=== PATIENT | male | born 1965 | race Caucasian/White ===

== ENCOUNTER → 2018-12-29 | Outpatient (CLI) | payer OTHER ==
--- NOTE | 2018-12-29 09:14 | KCIC ---
Shine radiograph of the orbits CLINICAL HISTORY: Pre-MRI evaluation. History of metal exposure to the eyes. Shine digital radiograph of the skull were obtained with the patient looking up and down. No radiopaque foreign body is seen involving either orbit. The visualized paranasal sinuses are clear. No fracture is seen. IMPRESSION: No radiopaque foreign body is seen involving either orbit. Electronically signed by: Josué Alvarez MD (12/29/2018 9:11 AM) [id number]
--- NOTE | 2018-12-29 10:30 | KCIC ---
Examination: MRI of the left ankle without contrast HISTORY: History of left ankle pain COMPARISON: None available Technique: Multiplanar, multisequence MR imaging of the left ankle were performed without contrast FINDINGS: The attachment of the Achilles tendon to the calcaneus grossly appears intact. The attachment of plantar fascia to the posterior calcaneus grossly appears intact. The visualized posterior tibialis tendon, flexor tendons grossly appears unremarkable. The anterior extensor compartment tendon grossly appears intact. The visualized peroneal tendons grossly appears intact. There is a 6.5 mm irregularity identified in the lateral talar dome with overlying cartilage irregularity likely osteochondral lesion. The deep fibers of the deltoid ligament, tibial spring component of the deltoid ligament appears intact. The anterior, posterior tibiofibular ligament, appear intact. The posterior talofibular ligament appears intact. The anterior talofibular ligament is not well-visualized likely tear or scarring. Fat is present within the sinus tarsi. IMPRESSION: 1. 6.5 mm irregularity identified in the lateral talar dome with overlying cartilage irregularity likely osteochondral lesion. 2. Probable tear or scarring of the anterior talofibular ligament. Electronically signed by: David Burton MD (12/29/2018 10:28 AM) [id number]
== END | disposition home or self-care (01) ==
LOC: KCIC MRI 08:24
DX: Z01.00 Encounter for examination of eyes and vision without abnormal findings (principal); S93.402S Sprain of unspecified ligament of left ankle, sequela; X58.XXXS Exposure to other specified factors, sequela
CPT/HCPCS: 70030; 73721